=== PATIENT | male | born 1995 | race Caucasian/White ===

== ENCOUNTER 2016-04-09 17:58 | Emergency (ER) | payer OTHER ==
[~2016-04-09] VITALS: Ht 193 cm; Wt 81.8 kg
[~2016-04-09 17:58] MED LIST: CLON0.1T PO; CLOT60CR TP; ONDA4TAB9 PO
[2016-04-09 18:44] VITALS: BP 121/76; PULSE 97; RESP 18; O2SAT 98
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
[2016-04-09 21:21] VITALS: BP 128/79; PULSE 90; RESP 18; O2SAT 98
== END 2016-04-09 21:21 | disposition home or self-care (01) ==
LOC: SED 17:58
DX: S00.83XA Contusion of other part of head, initial encounter (principal); Y04.0XXA Assault by unarmed brawl or fight, initial encounter; Y93.89 Activity, other specified; Y92.9 Unspecified place or not applicable; Y99.8 Other external cause status; Z88.0 Allergy status to penicillin; Z88.2 Allergy status to sulfonamides